=== PATIENT | female | born 1955 | race Caucasian/White ===

== ENCOUNTER 2022-09-29 18:49 | Emergency (ER) | payer OTHER ==
[~2022-09-29] VITALS: Ht 167.6 cm; Wt 81.6 kg
[2022-09-29 18:55] VITALS: BP_SYST 162
--- NOTE | 2022-09-29 19:16 | NUR ---
Patient arrived to ED 3 from Triage for c/o right hand deformity from fall today. Patient said she was walking earlier in afternoon and there were unsteady grounding and she fell on her right leg and tried to hold on with her right hand. Patient experiencing some nausea. Denies hitting head. Dr. Hirsch at bedside to [facility] [place]. Will continue to monitor.
[2022-09-29] MEDS ORDERED: ONDANSETRON 4 MG ODT TAB PO ONE (19:45)
[2022-09-29] MEDS ORDERED: KETOROLAC TROMETHAMINE 30 MG VIAL IM ONE (19:45)
[2022-09-29] MEDS ORDERED: BACITRACIN 1 GM OINT TP ONE (19:51)
[2022-09-29] MEDS ORDERED: HYDROcodone/ACETAMIN 5-325 MG TAB (NORCO/ VICODIN) PO ONE (21:15)
[2022-09-29] MEDS ORDERED: IBUP-1969 PO (21:18)
[2022-09-29] MEDS ORDERED: ACET1TAB93 PO (21:18)
[2022-09-29 21:42] VITALS: BP_SYST 134
--- NOTE | 2022-09-29 21:43 | NUR ---
Patient given written and verbal discharge instructions and verbalizes understanding. ER MD discussed with patient the results and treatment provided. Patient in stable condition. ID arm band removed. IV catheter removed intact and dressing applied, no active bleeding. Rx of pain meds given. Patient educated on pain management and to follow up with PMD. Pain Scale . Opportunity for questions provided and answered. Medication side effect fact sheet provided.
== END 2022-09-29 21:43 | disposition home or self-care (01) ==
LOC: SED 18:49
DX: S52.511A Displaced fracture of right radial styloid process, initial encounter for closed fracture (principal); Z79.899 Other long term (current) drug therapy; W01.0XXA Fall on same level from slipping, tripping and stumbling without subsequent striking against object, initial encounter; Y93.89 Activity, other specified; Y92.89 Other specified places as the place of occurrence of the external cause; Y99.8 Other external cause status
CPT/HCPCS: 99284; 73110; 73130; 73564; 29125; 96372; Q0162; J1885